=== PATIENT | female | born 1945 | race Caucasian/White ===

== ENCOUNTER 2016-07-24 10:17 | Emergency (ER) | payer BC ==
--- NOTE | 2016-07-24 11:22 | Emergency Department Record ---
History of Present Illness - General Chief complaint: Lower Extremity Pain Stated complaint: R LEG PAIN Time Seen by Provider: 07/24/16 11:04 Source: Patient Mode of Arrival: Ambulatory Limitations: No limitations - History of Present Illness Initial comments: pt has pain in her r thigh. she is unsure what is causing it but she thinks she might have pulled a muscle while mowing the lawn. no smoking, no trips, no recent surgeries, no cp MD Complaint: Extremity pain Onset/Timin -: Week(s) Location: Right, Thigh Radiation: Proximal Severity scale (1-10): 2 Quality: Aching Consistency: Intermittent Improves with: Rest Worsens with: Exertion, Palpation, Walking, Weight bearing Associated Symptoms: Denies other symptoms - Related Data Home Medications Medication Instructions Recorded Confirmed Last Taken Levothyroxine Sodium [Synthroid] 112 mcg PO DAILYTHY 11/22/14 07/24/16 1 Day Ago ~07/23/16 Previous Rx's Medication Instructions Recorded Cyclobenzaprine HCl [Flexeril] 10 mg PO TID #30 tablet 04/19/15 Hydrocodone/Acetaminophen [[place] 1 tab PO Q6H PRN #20 tab 04/19/15 5mg/325mg] Hydrocodone/Acetaminophen [[place] 0.5 - 1 tab PO TID PRN #10 tab 07/24/16 5mg/325mg] Allergies Allergy/AdvReac Type Severity Reaction Status Date / Time No Known Drug Allergies Allergy Verified 07/24/16 10:45 Travel Screening - Travel/Exposure Within Last 30 Days Have you traveled within the last 30 days?: No - Travel/Exposure Within Last Year Have you traveled outside the [place] in the last year?: No - Additonal Travel Details Have you been exposed to anyone with a communicable illness?: No - Travel Symptoms Symptom Screening: None Review of Systems Reviewed: No additional complaints except as noted below Constitutional: Reports: As per HPI. Denies: Chills, Fever, Malaise, Night sweats, Weakness, Weight change Eyes: Reports: As per HPI. Denies: Eye discharge, Eye pain, Photophobia, Vision change ENT: Reports: As per HPI. Denies: Congestion, Dental pain, Ear pain, Epistaxis , Hearing loss, Throat pain Respiratory: Reports: As per HPI. Denies: Cough, Dyspnea, Hemoptysis, Stridor, Wheezes Cardiovascular: Reports: As per HPI. Denies: Arrhythmia, Chest pain, Dyspnea on exertion, Edema, Murmurs, Orthopnea, Palpitations, Paroxysmal nocturnal dyspnea, Rheumatic Fever, Syncope Endocrine: Reports: As per HPI. Denies: Fatigue, Heat or cold intolerance, Polydipsia, Polyuria Gastrointestinal: Reports: As per HPI. Denies: Abdominal pain, Constipation, Diarrhea, Hematemesis, Hematochezia, Melena, Nausea, Vomiting Genitourinary: Reports: As per HPI. Denies: Abnormal menses, Discharge, Dyspareunia, Dysuria, Frequency, Hematuria, Incontinence, Retention, Urgency Musculoskeletal: Reports: As per HPI. Denies: Arthralgia, Back pain, Gout, Joint swelling, Myalgia, Neck pain Skin: Reports: As per HPI. Denies: Bruising, Change in color, Change in hair/ nails, Lesions, Pruritus, Rash Neurological: Reports: As per HPI. Denies: Abnormal gait, Confusion, Headache, Numbness, Paresthesias, Seizure, Tingling, Tremors, Vertigo, Weakness Psychiatric: Reports: As per HPI. Denies: Anxiety, Auditory hallucinations, Depression, Homicidal thoughts, Suicidal thoughts, Visual hallucinations Hematological/Lymphatic: Reports: As per HPI. Denies: Anemia, Blood Clots, Easy bleeding, Easy bruising, Swollen glands Past Medical History - SOCIAL HISTORY Smoking Status: Never smoker Alcohol Use: None Drug Use: None - RESPIRATORY Hx Respiratory Disorders: No - CARDIOVASCULAR Hx Cardio Disorders: No - NEURO Hx Neuro Disorders: No - GI Hx GI Disorders: No - Hx Genitourinary Disorders: No - ENDOCRINE Hx Endocrine Disorders: Yes Hx Thyroid Disease: Yes (hyperthyroidism) - MUSCULOSKELETAL Hx Musculoskeletal Disorders: Yes Hx Arthritis: Yes (bilateral hands and knees) - PSYCH Hx Psych Problems: No - HEMATOLOGY/ONCOLOGY Hx Hematology/Oncology Disorders: No Family Medical History Any Significant Family History?: Yes Hx Cancer: Brother/Sister Physical Exam - General General Appearance: Alert, Oriented x3, Cooperative, Mild distress - Head Head exam: Normal inspection - Eye Eye exam: Normal appearance, PERRL, EOMI Pupils: Normal accommodation - ENT ENT exam: Normal exam, Mucous membranes moist, Normal external ear exam, Normal orophraynx Ear exam: Normal external inspection. negative: External canal tenderness Nasal Exam: Normal inspection. negative: Discharge, Sinus tenderness Mouth exam: Normal external inspection, Tongue normal Teeth exam: Normal inspection. negative: Dental caries Throat exam: Normal inspection. negative: Tonsillar erythema, Tonsillar exudate - Neck Neck exam: Normal inspection, Full ROM. negative: Tenderness - Respiratory Respiratory exam: Normal lung sounds bilaterally. negative: Respiratory distress - Cardiovascular Cardiovascular Exam: Regular rate, Normal rhythm, Normal heart sounds - GI/Abdominal GI/Abdominal exam: Soft, Normal bowel sounds. negative: Tenderness - Rectal Rectal exam: Deferred - exam: Deferred - Extremities Extremities exam: Full ROM, Normal capillary refill, Tenderness, Other ( tenderness on ant thigh in quad. pt is able to elevate leg without difficulty, no bunching of quad) Image of Full Body: 1 - tender, no erythema, no swelling, pt is able to lift leg w no difficulty - Back Back exam: Reports: Normal inspection, Full ROM. Denies: Muscle spasm, Rash noted, Tenderness - Neurological Neurological exam: Alert, CN II-XII intact, Normal gait, Oriented X3 - Psychiatric Psychiatric exam: Normal affect, Normal mood - Skin Skin exam: Dry, Intact, Normal color, Warm Course Vital Signs 07/24/16 10:36 Temperature 98.4 F Pulse Rate 82 Respiratory 18 Rate Blood Pressure 172/88 Pulse Ox 97 Medical Decision Making - Lab Data Result diagrams: 07/24/16 11:15 Disposition Disposition: Discharge Clinical Impression: Muscle strain of right thigh Qualifiers: Encounter type: initial encounter Qualified Code(s): S76.911A - Strain of unspecified muscles, fascia and tendons at thigh level, right thigh, initial encounter Disposition: Home, Self-Care Condition: (1) Good Instructions: Muscle Strain (ED), Groin Strain (ED) Additional Instructions: follow up with family doctor. return sooner if worse. Prescriptions: Hydrocodone/Acetaminophen [[place] 5mg/325mg] 0.5 - 1 tab PO TID PRN #10 tab PRN Reason: Pain - General Forms: Patient Portal Access
[2016-07-24 11:25] LABS: BASO % 0.5 % (0-6); EOS % 2.8 % (0-6); GRAN % 58.2 % (47-80); HEMATOCRIT 41.4 % (35.0-47.0); HEMOGLOBIN 13.6 gm/dl (11.6-16.0); LYMPH % 30.9 % (16-45); MEAN CELL VOLUME 88.7 fl (81-97); MEAN CORPUSCULAR HEMOGLOBIN 29.1 pg (27-33); MEAN CORPUSCULAR HGB CONC 32.9 g/dl (32-36); MEAN PLATELET VOLUME 10.5 fl (7.4-10.4); MONO % 7.6 % (0-9); PLATELET COUNT 267 K/uL (130-400); RED BLOOD COUNT 4.67 M/uL (3.80-5.40); WHITE BLOOD COUNT W/O DIFF 6.4 K/uL (4.2-12.2)
== END 2016-07-24 11:59 | disposition home or self-care (01) ==
LOC: ER 10:17
DX: S76.911A Strain of unspecified muscles, fascia and tendons at thigh level, right thigh, initial encounter (principal); X50.9XXA Other and unspecified overexertion or strenuous movements or postures, initial encounter; Y93.H9 Activity, other involving exterior property and land maintenance, building and construction
CPT/HCPCS: 85025; 85379; 99283

== ENCOUNTER 2018-02-27 07:56 | Day surgery (SDC) | payer BC ==
[2018-02-27] MEDS ORDERED: PROPOFOL 10 MG/ML VIAL IV ONE (07:57)
[2018-02-27] MEDS ORDERED: LIDOCAINE 2% MDV (20MG/ML) 20ML VIAL IV ONE (07:57)
--- NOTE | 2018-02-27 16:20 | Operative Note ---
DATE OF SURGERY: 02/27/2018 OPERATION: ESOPHAGOGASTRODUODENOSCOPY with biopsy and Cantu dilatation. INDICATION: Dysphagia. HISTORY: The patient reports a history of dysphagia to solids and to liquids pointing towards the sternal notch area. She claims she does have difficulty initially swallowing but also feels as though food does not go down well after swallowing. Upper endoscopy is performed at this time for further evaluation. ANESTHESIA: Intravenous sedation was administered by the department of anesthesiology and included Diprivan titrated to effect. PROCEDURE: Following informed consent from this alert individual, including a discussion of the risks and benefits of the procedure and an opportunity for the patient to ask questions, the patient was in the left lateral decubitus position. The Olympus [id number] video endoscope was inserted into the esophagus without much resistance. The posterior pharynx appeared to be endoscopically normal. The esophageal mucosa was free of ulcerations and erosions. There was some minimal luminal narrowing noted in the mid portion and distal esophagus. There was a large-bore Schatzki ring noted at the GE junction sitting above a small 2 cm hiatal hernia. The hernia sac itself was free from changes. The subdiaphragmatic stomach was entered and found to be unremarkable. The pylorus was patent. The duodenal bulb, sweep and descending duodenum were examined in a serial fashion and found to be normal. The endoscope was then drawn back into the body of the stomach where retroflexion accomplished following air insufflation failed to demonstrate any additional changes. The endoscope was then straightened and withdrawn back into the esophagus. Biopsies were taken from the mid and distal esophagus upon withdrawal. After biopsy, the endoscope was withdrawn and a 48-[place] Cantu dilator was advanced into the esophagus and into the stomach with slight resistance. The dilator was withdrawn and the endoscope was then re-advanced. The Schatzki ring appeared open with small mucosal tear at that level. No other changes were appreciated. The endoscope was withdrawn. The patient tolerated the procedure well and was returned to the recovery area in stable condition. IMPRESSION: 1. Large-bore Schatzki ring noted, status post dilatation to 48-[place]. 2. Small 2 cm hiatal hernia. 3. Normal stomach and duodenum. 4. Possible mild luminal narrowing of the mid and distal esophagus, status post dilatation. RECOMMENDATION: The patient will continue on omeprazole daily. She will follow up with me or in our GI clinic here in the next 2 months or so to assess her progress. If she is still having difficulty swallowing, perhaps a triple-phase deglutition study wound be beneficial. Followup will also be with Dr. Ash. As always, thank you for allowing me to participate in the care of your patient. CC: SHANTANU ASH MD, FACP [facility]
== END 2018-02-27 09:50 | disposition home or self-care (01) ==
LOC: HOP 07:56
PROVIDERS: ATTEND Internal Medicine Gastroenterology
DX: R13.10 Dysphagia, unspecified (principal); K22.2 Esophageal obstruction; K44.9 Diaphragmatic hernia without obstruction or gangrene; E03.9 Hypothyroidism, unspecified